=== PATIENT | female | born 1990 | race Caucasian/White ===

== ENCOUNTER 2018-09-19 11:50 | Inpatient (IN) | payer OTHER, MEDICAID ==
[2018-09-19 12:35] LABS: ADD UMIC YES; UR ASCORBIC ACID NEGATIVE (NEGATIVE); UR BACTERIA FEW /HPF (NONE SEEN); UR BILIRUBIN (Dip) NEGATIVE (NEGATIVE); UR BLOOD (Dip) 1+ mg/dL (NEGATIVE); UR CLARITY SLIGHTLY CLOUDY (CLEAR); UR COLOR YELLOW (YELLOW); UR GLUCOSE (Dip) NEGATIVE (NEGATIVE); UR KETONES (Dip) NEGATIVE (NEGATIVE); UR LEUKOCYTE ESTERASE (Dip) 1+ Leu/ul (NEGATIVE); UR MUCUS FEW /HPF (NONE SEEN); UR NITRITE (Dip) NEGATIVE (NEGATIVE); UR RBC 30 /HPF (0-5); UR SPECIFIC GRAVITY (Dip) 1.025 (1.003-1.030); UR SQUAMOUS EPITHELIAL CELL MODERATE /HPF (FEW); UR TOTAL PROTEIN (Dip) 1+ mg/dl (NEGATIVE); UR UROBILINOGEN (Dip) 2+ mg/dL (NEGATIVE); UR WBC 65 /HPF (0-5)
[2018-09-19 12:38] LABS: RUPTURE FETAL MEMBRANES POSITIVE (NEGATIVE)
[2018-09-19] MEDS ORDERED: CARBOPROST 250 MCG INJ IM ×2 (13:00→23:00)
[2018-09-19] MEDS ORDERED: METHYLERGONOVINE 0.2 MG INJ IM ×2 (13:00→23:00)
[2018-09-19] MEDS ORDERED: BUTORPHANOL 2 MG INJ IV (13:00)
[2018-09-19] MEDS ORDERED: MISOPROSTOL 200 MCG TAB PR ×2 (13:00→23:00)
[2018-09-19] MEDS ORDERED: LIDOCAINE 1% (MPF) 30 ML INJ INJ (13:00)
[2018-09-19] MEDS ORDERED: IBUPROFEN 600 MG TAB PO (13:00)
[2018-09-19] MEDS ORDERED: OXYCODONE/ASPIRIN (4.88/325) TAB PO (13:00)
[2018-09-19] MEDS ORDERED: OXYTOCIN 30 UNITS/LR 500 ML IV ×2 (13:00→23:00)
[2018-09-19 13:46] LABS: ADD MAN DIFF? NO
[2018-09-19 13:49] LABS: BASOPHILS % 0.2 % (0.0-2.0); EOSINOPHILS % 0.2 % (0.0-7.0); HEMATOCRIT 32.5 % (37.0-47.0); HEMOGLOBIN 10.4 g/dl (12.0-16.0); LYMPHOCYTES # 1.8 10^3/ul (0.8-2.9); LYMPHOCYTES % 18.9 % (15.0-51.0); MEAN CORPUSCULAR HEMOGLOBIN 27.2 pg (29.0-33.0); MEAN CORPUSCULAR VOLUME 84.9 fl (82.0-101.0); MONOCYTE # 0.4 10^3/ul (0.3-0.9); MONOCYTES % 4.2 % (0.0-11.0); NEUTROPHIL # 7.1 10^3/ul (1.6-7.5); NUCLEATED RED BLOOD CELLS% 0.2 /100WBC (0.0-0.0); PLATELET COUNT 198 10^3/UL (140-415); RED BLOOD COUNT 3.83 10^6/ul (4.20-5.40); RED CELL DISTRIBUTION WIDTH 13.9 % (11.5-14.5)
[2018-09-19 13:49] LABS: WHITE BLOOD COUNT 9.3 10^3/ul (4.8-10.8)
[2018-09-19 14:16] LABS: PARTIAL THROMBOPLASTIN TIME 25.9 Sec (23.0-35.0)
[2018-09-19 14:24] LABS: INR 0.82; PROTIME 11.4 Sec (11.9-14.9); PT RATIO 0.9
[2018-09-19 14:40] LABS: HEPATITIS B SURFACE ANTIGEN NEGATIVE (NEGATIVE)
[2018-09-19] MEDS ORDERED: FENTAnyl 2MCG/ML-ROPIV 0.2% 100 ML (14:45)
[2018-09-19] MEDS: LACTATED RINGER'S 1,000 ML IV ×3 (14:51→16:00)
[2018-09-19] MEDS: OXYTOCIN 30 UNITS/LR 500 ML IV ×3 (14:55→21:43)
[2018-09-19] MEDS ORDERED: NALOXONE (0.4 MG/ML) INJ IV (15:00)
[2018-09-19] MEDS ORDERED: FENTAnyl 2MCG/ML-ROPIV 0.2% 100 ML BAG EPI (15:00)
[2018-09-19 19:49] LABS: RAPID PLASMA REAGIN NONREACTIVE (NR)
[2018-09-19] MEDS: MINERAL OIL LIGHT 10 ML VIAL TOP (21:39)
[2018-09-19] MEDS: LACTATED RINGER'S 1,000 ML IV* (22:51)
[2018-09-19] MEDS ORDERED: HYDROCODONE/APAP (5/325) TAB PO (23:00)
[2018-09-19] MEDS ORDERED: ACETAMINOPHEN 325 MG TAB PO (23:00)
[2018-09-19] MEDS ORDERED: DIBUCAINE 1% 30 GM OINT TOP (23:00)
[2018-09-20] MEDS: IBUPROFEN 600 MG TAB PO ×5 (00:26→23:48)
[2018-09-20] MEDS: BENZOCAINE 20% 56 ML SPRAY TOP (00:26)
[2018-09-20] MEDS: WITCH HAZEL/GLYCERIN PAD PR (00:27)
[2018-09-20] MEDS: LACTATED RINGER'S 1,000 ML IV* ×2 (06:26→14:51)
[2018-09-20 06:47] LABS: ADD MAN DIFF? NO
[2018-09-20 06:52] LABS: ABNORMAL IP MESSAGE 1; BASOPHILS % 0.2 % (0.0-2.0); EOSINOPHILS % 0.1 % (0.0-7.0); HEMATOCRIT 26.9 % (37.0-47.0); HEMOGLOBIN 8.7 g/dl (12.0-16.0); LYMPHOCYTES % 15.7 % (15.0-51.0); MEAN CORPUSCULAR HEMOGLOBIN 27.6 pg (29.0-33.0); MEAN CORPUSCULAR HGB CONC 32.3 g/dl (32.0-37.0); MEAN CORPUSCULAR VOLUME 85.4 fl (82.0-101.0); MEAN PLATELET VOLUME 13.1 fl (7.4-10.4); MONOCYTE # 0.6 10^3/ul (0.3-0.9); MONOCYTES % 4.4 % (0.0-11.0); NEUTROPHIL # 9.9 10^3/ul (1.6-7.5); NEUTROPHILS % 78.9 % (39.0-77.0); PLATELET COUNT 160 10^3/UL (140-415); RED BLOOD COUNT 3.15 10^6/ul (4.20-5.40); RED CELL DISTRIBUTION WIDTH 13.8 % (11.5-14.5)
[2018-09-20 06:52] LABS: WHITE BLOOD COUNT 12.5 10^3/ul (4.8-10.8)
[2018-09-20 07:24] LABS: POSITIVE DIFF @See below
[2018-09-20] MEDS: SENNA/DOCUSATE NA (8.6MG/50MG) TAB PO ×2 (09:13→21:00)
[2018-09-20] MEDS: FERROUS SULFATE (EC) 325 MG TAB PO ×2 (13:37→21:23)
[2018-09-21] MEDS: IBUPROFEN 600 MG TAB PO ×2 (05:59→12:15)
[2018-09-21] MEDS: SENNA/DOCUSATE NA (8.6MG/50MG) TAB PO (09:00)
[2018-09-21] MEDS: DIPHTH/TET/ACEL PERTUSS (ADULT) 0.5 ML VIAL IM* (09:00)
[2018-09-21] MEDS: FERROUS SULFATE (EC) 325 MG TAB PO ×2 (10:30→13:56)
== END 2018-09-21 16:33 | disposition home or self-care (01) | DRG 807 ==
LOC: OBT 11:50 → L-D 11:50 → OBT 12:58 → L-D 12:50 → PP1 22:32
PROVIDERS: Obstetrics & Gynecology
PROC: 10E0XZZ Delivery of Products of Conception, External Approach (ICD-10-PCS; principal; 2018-09-19)
PROC: 0HQ9XZZ Repair Perineum Skin, External Approach (ICD-10-PCS; 2018-09-19)
DX: O70.0 First degree perineal laceration during delivery (principal); Z37.0 Single live birth; Z3A.37 37 weeks gestation of pregnancy
CPT/HCPCS: 62319; 76818; 81001; 84112; 85025; 85610; 85730; 86592; 86850; 86900; 86901; 87340; 99464